=== PATIENT | male | born 1990 | race American Indian/Alaskan Native ===

== ENCOUNTER 2017-07-04 09:06 | Emergency (ER) | payer OTHER ==
[2017-07-04 09:23] VITALS: BP 122/59
[2017-07-04] MEDS ORDERED: MOTRIN PO ONE (12:17)
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
--- NOTE | 2017-07-04 12:54 | XRay Report ---
RIGHT HIP, 2 views: History: Right hip pain. The bony architecture is intact without evidence of fracture or dislocation. No significant soft tissue abnormality is seen. IMPRESSION: Normal right hip.
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
== END 2017-07-04 13:54 | disposition home or self-care (01) ==
LOC: ED 09:06
DX: S76.011A Strain of muscle, fascia and tendon of right hip, initial encounter (principal); R07.89 Other chest pain; V49.49XA Driver injured in collision with other motor vehicles in traffic accident, initial encounter; Y93.9 Activity, unspecified; Y92.9 Unspecified place or not applicable; Y99.9 Unspecified external cause status
CPT/HCPCS: 71111